=== PATIENT | female | born 1970 | race Caucasian/White ===

== ENCOUNTER → 2025-06-24 | Outpatient (CLI) | payer BC, OTHER | END | disposition home or self-care (01) | LOC: MRI 15:30 | PROVIDERS: ATTEND Chiropractor Sports Physician | DX: M47.814 Spondylosis without myelopathy or radiculopathy, thoracic region (principal); M47.816 Spondylosis without myelopathy or radiculopathy, lumbar region; M51.362 Other intervertebral disc degeneration, lumbar region with discogenic back pain and lower extremity pain; M25.78 Osteophyte, vertebrae; M48.04 Spinal stenosis, thoracic region ==